=== PATIENT | male | born 1960 | race Caucasian/White ===

== ENCOUNTER → 2022-09-23 07:58 | Outpatient (BNVA) | payer SELFPAY | PROVIDERS: Family Provider Family Medicine; PCP Family Medicine; Visit Provider Family Medicine | DX: Z00.00 Encounter for general adult medical examination without abnormal findings (principal); I10 Essential (primary) hypertension | CPT/HCPCS: 80053; 80061; 83036 ==

== ENCOUNTER → 2023-09-07 07:43 | Outpatient (BNVA) | payer MEDICARE, SELFPAY | PROVIDERS: Family Provider Family Medicine; PCP Family Medicine; Visit Provider Family Medicine | DX: R73.9 Hyperglycemia, unspecified (principal); I10 Essential (primary) hypertension; Z00.00 Encounter for general adult medical examination without abnormal findings; N40.0 Benign prostatic hyperplasia without lower urinary tract symptoms; Z13.6 Encounter for screening for cardiovascular disorders | CPT/HCPCS: 80053; 80061; 83036; 85025 ==

== ENCOUNTER → 2023-11-14 10:22 | Outpatient (BNVA) | payer MEDICARE, SELFPAY | PROVIDERS: Family Provider Family Medicine; PCP Family Medicine; Visit Provider Family Medicine | DX: N40.0 Benign prostatic hyperplasia without lower urinary tract symptoms (principal); Z00.00 Encounter for general adult medical examination without abnormal findings | CPT/HCPCS: G0103 ==

== ENCOUNTER 2024-08-22 08:51 | Emergency (ER) | payer MEDICARE, SELFPAY ==
[2024-08-22 09:08] VITALS: BP 132/100; PULSE 81; RESP 18; TEMP 36.6; O2SAT 97; BMI 35.9
[2024-08-22 09:31] LABS: Basophils # 0.1 10^3/uL (0.0-0.1); Basophils % 0.7 %; Eosinophils # 0.6 10^3/uL (0.0-0.8); Eosinophils % 7.1 %; Hematocrit 49.7 % (37-53); Lymphocytes # 1.4 10^3/uL (0.8-4.8); Lymphocytes % 17.6 %; Mean Corpuscular HGB Conc 32.8 g/dL (30-55); Mean Corpuscular Hemoglobin 30.3 pg (27-33); Mean Corpuscular Volume 92.4 fl (82-101); Mean Platelet Volume 9.8 fL (7.4-10.4); Monocytes # 0.8 10^3/uL (0.2-0.9); Monocytes % 9.6 %; Neutrophils % 64.6 %; Nucleated Red Blood Cells % 0 %; Platelet Count 148 10^3/cmm (157-399); Red Blood Count 5.38 10^6/uL (3.85-5.65); Red Cell Distribution Width 13.2 % (12.1-15.1)
[2024-08-22 09:50] LABS: Alanine Aminotransferase 15 U/L (0-41); Albumin Level 4.2 g/dL (3.5-5.2); Alkaline Phosphatase 80 U/L (40-130); Anion Gap 15.3 (5-19); Aspartate Amino Transferase 15 U/L (0-40); Blood Urea Nitrogen 19 mg/dL (8-23); Calcium 9.8 mg/dL (8.5-10.5); Carbon Dioxide 27 mmol/L (22-29); Chloride 101 mmol/L (98-107); Creatinine Clr Calc Pharmacy 91.6358; Globulin 2.9 g/dL (1.3-4.6); Glomerular Filtration Rate 74.8 mL/min (90-130); Glucose 109 mg/dL (65-115); Osmolality Calculated 291 mOsm/kg (285-295); Potassium 4.3 mmol/L (3.5-5.1); Sodium 139 mmol/L (136-145); Total Bilirubin 0.6 mg/dL (0.15-1.2); Total Protein 7.1 g/dL (6.6-8.7)
--- NOTE | 2024-08-22 09:50 | W.ED.EXTPRO ---
HPI - Extremity Problem General: Chief complaint: Extremity Injury, Lower Stated complaint: swollen left leg Time Seen by Provider: 08/22/24 08:52 History of Present Illness: 64-year-old male presents emergency room complaining of swelling in his leg. Patient had pain and swelling in his leg that began over the last several days he had been doing a lot of traveling in a car and then when he got home over the weekend he did not feel well so he was relatively sedentary on the couch for a few days. He has noticed significant swelling in the left lower leg and increased pain. He has not had any chest pain or shortness of breath Associated symptoms: Deny chest pain, fever(s) or rash Related Data Previous Rx's Medication Instructions Recorded clotrimazole-betamethasone 1 1 applic topical BID #45 grams 07/17/24 %-0.05 % topical cream lisinopril 10 1 tab PO DAILY #90 tabs 07/17/24 mg-hydrochlorothiazide 12.5 mg tablet tamsulosin 0.4 mg capsule 0.4 mg PO DAILY #90 caps 07/17/24 apixaban 5 mg (74 tabs) tablets in See Rx Instructions PO .COMPLEX 08/22/24 a dose pack (Eliquis DVT-PE Treat #74 ea 30D Start) Allergies Allergy/AdvReac Type Severity Reaction Status Date / Time No Known Allergies Allergy Unverified 07/17/24 08:17 Review of Systems Const: Denies: fever(s) or chills Card: Denies: chest pain Resp: Denies: dyspnea GI: Denies: abdominal pain : Denies: dysuria, urinary frequency or urinary urgency Musc: Reports: extremity pain and extremity swelling; Denies: neck pain or back pain Skin/Breast: Denies: rash [facility] ED PFSH: Medical History Prostatic hypertrophy Hypertension Social History Smoking and tobacco/nicotine status: never used tobacco/nicotine Physical Exam Const: COMMON NORMALS: no acute distress GENERAL APPEARANCE: cooperative and comfortable ORIENTATION/CONSCIOUSNESS: Yes awake, Yes oriented to person, Yes oriented to place and Yes oriented to time HENMT: COMMON NORMALS: normocephalic, atraumatic and hearing grossly normal bilaterally HEAD & SCALP: normocephalic and atraumatic Resp: COMMON NORMALS: normal respiratory effort, No retractions, No use of accessory muscles and clear to auscultation bilaterally AUSCULTATION: clear to auscultation bilaterally Cardio: COMMON NORMALS: regular rate, regular rhythm and No murmurs present (Cardio) RATE: regular rate RHYTHM: regular rhythm GI: COMMON NORMALS: Soft to palpation and No hepatosplenomegaly present AUSCULTATION: Yes normoactive bowel sounds PALPATION: Yes Soft to palpation, No Tenderness to palpation present (GI), No Guarding due to palpation present (GI) and Yes No hepatosplenomegaly present Extremity: OTHER: Significant swelling of the left lower extremity when compared to the right. Moderate edema. No redness no inflammation no induration of the skin. No sign of cellulitis Neuro: SENSORIUM/ORIENTATION: Yes oriented to person, Yes oriented to place and Yes oriented to time Skin: COMMON NORMALS: no rashes or lesions noted GENERAL SKIN EXAM: no rashes or lesions noted Course Vital Signs: Vital signs: Vital Signs Temperature 97.9 F 08/22/24 09:08 Pulse Rate 72 08/22/24 11:14 Respiratory Rate 18 08/22/24 09:08 Blood Pressure 119/97 08/22/24 11:14 Pulse Oximetry 98 08/22/24 11:14 Oxygen Delivery Me thod Room Air 08/22/24 09:08 MDM - Extremity (Nontraumatic) Medical Decision Making Venous duplex confirms DVT. Patient had Lovenox started on Eliquis follow-up with primary care patient encouraged to stay on his Eliquis to get refills from his primary care doctor until he specifically advised that he can stop. Believe the precipitating event for the DVT was the travel and then his sedentary on the couch for a few days after. Recheck if has sudden chest pain or shortness of breath Medical Records I reviewed the patient's medical records. Lab Data I reviewed the patient's lab results. 08/22/24 09:25 08/22/24 09:25 Laboratory Results WBC 8.20 10^3/uL (3.29-11.43) 08/22/24 09:25 RBC 5.38 10^6/uL (3.85-5.65) 08/22/24 09:25 Hgb 16.30 g/dL (11.27-16.99) 08/22/24: Hct 49.7 % (37-53) 08/22/24: MCV 92.4 fl (82-101) 08/22/24: MCH 30.3 pg (27-33) 08/22/24: MCHC 32.8 g/dL (30-55) 08/22/24: RDW 13.2 % (12.1-15.1) 08/22/24: Plt Count 148 10^3/cmm (157-399) L 08/22/24: MPV 9.8 fL (7.4-10.4) 08/22/24: Neut % (Auto) 64.6 % 08/22/24: Lymph % (Auto) 17.6 % 08/22/24: [place] % (Auto) 9.6 % 08/22/24: Eos % (Auto) 7.1 % 08/22/24: Baso % (Auto) 0.7 % 08/22/24: Neut # (Auto) 5.30 10^3/uL (1.8-7.7) 08/22/24: Lymph # (Auto) 1.4 10^3/uL (0.8-4.8) 08/22/24:25 [place] # (Auto) 0.8 10^3/uL (0.2-0.9) 08/22/24: Eos # (Auto) 0.6 10^3/uL (0.0-0.8) 08/22/24:25 Baso # (Auto) 0.1 10^3/uL (0.0-0.1) 08/22/24: Nucleated RBC % (auto) 0 % 08/22/24: Nucleated RBCs # 0.0 /100WBC 08/22/24:25 Sodium 139 mmol/L (136-145) 08/22/24: Potassium 4.3 mmol/L (3.5-5.1) 08/22/24: Chloride 101 mmol/L (98-107) 08/22/24:25 Carbon Dioxide 27 mmol/L (22-29) 08/22/24 09:25 Anion Gap 15.3 (5-19) 08/22/24 09:25 BUN 19 mg/dL (8-23) 08/22/24 09:25 Creatinine 1.0 mg/dL (0.7-1.2) 08/22/24 09:25 GFR Calculation 74.8 mL/min (90-130) L 08/22/24 09:25 Glucose 109 mg/dL (65-115) 08/22/24 09:25 Calculated Osmolality 291 mOsm/kg (285-295) 08/22/24 09:25 Calcium 9.8 mg/dL (8.5-10.5) 08/22/24 09:25 Total Bilirubin 0.6 mg/dL (0.15-1.2) 08/22/24 09:25 AST 15 U/L (0-40) 08/22/24 09:25 ALT 15 U/L (0-41) 08/22/24 09:25 Alkaline Phosphatase 80 U/L (40-130) 08/22/24 09:25 Total Protein 7.1 g/dL (6.6-8.7) 08/22/24 09:25 Albumin 4.2 g/dL (3.5-5.2) 08/22/24 09:25 Globulin 2.9 g/dL (1.3-4.6) 08/22/24 09:25 Urine Color Yellow (Yellow) 08/22/24 09:50 Urine Appearance Clear (CLEAR) 08/22/24 09:50 Urine pH 5.5 (5-7) 08/22/24 09:50 Ur Specific [place] 1.010 (1.005-1.030) 08/22/24 09:50 Urine Protein Negative (Negative) 08/22/24 09:50 Urine Glucose (UA) Negative (Normal) 08/22/24 09:50 Urine Ketones Negative (Negative) 08/22/24 09:50 Urine Blood Negative (Negative) 08/22/24 09:50 Urine Nitrate Negative (Negative) 08/22/24 09:50 Urine Bilirubin Negative (Negative) 08/22/24 09:50 Urine Urobilinogen 0.2 mg/dL (Negative) 08/22/24 09:50 Ur Leukocyte Esterase Negative (Negative) 08/22/24 09:50 Urine RBC 0-2 /hpf (0-2) 08/22/24 09:50 Urine WBC 0-5 /hpf (0-5) 08/22/24 09:50 Ur Squamous Epith Cells 0-5 /hpf (0-5) 08/22/24 09:50 Amorphous Sediment Not Reportable 08/22/24 09:50 Urine Bacteria None seen /hpf (NONE) 08/22/24 09:50 Hyaline Casts 0-4 /lpf H 08/22/24 09:50 All radiology interpretation(s) finalized by discharge Discharge Plan Discharge Patient Disposition: Home Clinical Impression: DVT (deep venous thrombosis) Condition: Stable Prescriptions: New Eli[facility] DVT-PE Treat 30D Start 5 mg (74 tabs) tablets,dose pack See Rx Instructions .ROUTE .COMPLEX Qty: 74 0RF Rx Instructions: orally per package directions No Action lisinopril-hydrochlorothiazide 10-12.5 mg tablet 1 tab PO DAILY Qty: 90 3RF tamsulosin 0.4 mg capsule 0.4 mg PO DAILY Qty: 90 3RF clotrimazole-betamethasone 1-0.05 % cream 1 applic topical BID Qty: 45 5RF Discharge Orders: Discharge ED (Routine); Ordered 08/22/24 Ordered By: Marco Middleton Referrals: Ze Esparza MD [Family Provider] - Harpal Morrow DO [Primary Care Provider] - Discharge Diet: Usual diet Discharge Activity: Resume usual activity Patient Instructions: Deep Vein Thrombosis (ED), Opioid Safety, Pain Management Activity Restrictions/Additional Instructions: Thank you for choosing [facility] for your healthcare needs today. It is very important that you follow up as instructed or that you return to the Emergency Department should you have concerns or if your condition changes or worsens in any way. You are seen in the emergency room for swelling in your leg. You are found on ultrasound to have a blood clot in the left leg. The treatment for this is anticoagulation. We gave you an initial shot in the emergency room you should start the oral tablets as soon as you are able to get them from the pharmacy. Is very important to continue the oral anticoagulation until your physician specifically tells you that you can stop. This clot was likely precipitated by long drives and being sedentary. If you develop chest pain or severe shortness of breath return to the nearest emergency room. Coding Level of Care Code ED [employer] Trimmer for Chase Severino
--- NOTE | 2024-08-22 10:02 | USCV_ITS ---
Juaquin Lopes Age: 64 Gender: M : 1960 Exam Date: 08/22/2024 10:21 Ordering Phys: Marco Middleton DO Technologist: [employer] Exam Location: [facility] [place]_ Indication: swelling HISTORY: Lower extremity swelling. PROCEDURES: Venous duplex imaging was performed in only the left lower extremity. The following venous structures were evaluated: common femoral vein, profunda vein, proximal portion of the greater saphenous vein, superficial femoral vein, and the popliteal vein. In addition, the posterior tibial and peroneal trunk were evaluated. Serial compression, augmentation maneuvers, and spectral Doppler flow evaluation were performed. FINDINGS: Left lower extremity: there is occlusive DVT of LT Prox FV through the LT Popliteal Vein. No additional DVT. CONCLUSIONS There is evidence of acute left lower extremity deep venous thrombosis, femoral and popliteal veins. Dr. Sue Jaimes DO (Electronically Signed) Final Date: 22 August 2024 11:58 S
[2024-08-22 10:11] LABS: Bilirubin Urine Negative (Negative); Blood Urine Negative (Negative); Glucose Urine UA Negative (Normal); Ketones Urine Negative (Negative); Leukocyte Esterase Urine Negative (Negative); Nitrate Urine Negative (Negative); Protein Urine Negative (Negative); Urine Appearance Clear (CLEAR); Urine Color Yellow (Yellow); Urobilinogen Urine 0.2 mg/dL (Negative); pH Urine 5.5 (5-7)
[2024-08-22 10:16] LABS: Add Urine Microscopic? YES; Bacteria Urine None Seen /hpf; Hyaline Casts Urine 0-4 /lpf; RBC Urine 0-2 /hpf (0-2); Squamous Epithelial Cell Urine 0-5 /hpf (0-5); WBC Urine 0-5 /hpf (0-5)
[2024-08-22] MEDS: enoxaparin 120 mg/0.8 mL Syringe 110 MG SUBCUT (11:13)
[2024-08-22 11:14] VITALS: BP 119/97; PULSE 72; O2SAT 98
== END 2024-08-22 11:19 | disposition home or self-care (01) ==
PROVIDERS: Emergency Provider Family Medicine; Family Provider Family Medicine; PCP Family Medicine
DX: I82.402 Acute embolism and thrombosis of unspecified deep veins of left lower extremity (principal); I10 Essential (primary) hypertension
CPT/HCPCS: 36415; 80053; 81001; 85025; 93971; 96372; 99284; J1650

== ENCOUNTER → 2025-01-14 09:52 | Outpatient (BNVA) | payer MEDICARE, OTHER, SELFPAY | PROVIDERS: Family Provider Family Medicine; PCP Family Medicine; Visit Provider Family Medicine | DX: R39.9 Unspecified symptoms and signs involving the genitourinary system (principal); N41.9 Inflammatory disease of prostate, unspecified | CPT/HCPCS: 81000; 87086 ==

== ENCOUNTER → 2025-02-05 16:48 | Outpatient (BNVA) | payer MEDICARE, OTHER, SELFPAY | PROVIDERS: Family Provider Family Medicine; PCP Family Medicine; Visit Provider Internal Medicine Cardiovascular Disease | DX: I82.402 Acute embolism and thrombosis of unspecified deep veins of left lower extremity (principal); I87.2 Venous insufficiency (chronic) (peripheral); Z79.01 Long term (current) use of anticoagulants; I82.409 Acute embolism and thrombosis of unspecified deep veins of unspecified lower extremity; R07.9 Chest pain, unspecified | CPT/HCPCS: 93005; 99204 ==